=== PATIENT | female | born 1965 | race Two or more races ===

== ENCOUNTER 2019-09-16 19:28 | Inpatient (IN) | payer MEDICARE, OTHER ==
[2019-09-16 20:25] VITALS: BP 93/58
[2019-09-16] MEDS ORDERED: Benztropine 1 mg/mL 2 mL Vial IM ONE (20:37)
[2019-09-16] MEDS ORDERED: Magnesium Hydroxide (MOM) 30 mL UDC PO PRN (20:38)
[2019-09-17] MEDS: Benztropine 1 MG TAB PO SCH ×2 (11:18→16:38)
--- NOTE | 2019-09-17 14:55 | History & Physical ---
ADMIT DATE: 09/17/2019 HISTORY OF PRESENT ILLNESS: We have a 54-year-old female with schizophrenia, diabetes, hypertension, who was admitted for agitation and acting out. The patient's symptoms were not controlled and was transferred here. PAST MEDICAL HISTORY: 1. Schizophrenia. 2. Diabetes. 3. Hypertension. PAST SURGICAL HISTORY: None. MEDICATIONS: List reviewed. ALLERGIES: None. PHYSICAL EXAMINATION: VITAL SIGNS: Temperature is 97.8, pulse 108, respirations 20, blood pressure is 108/48. HEENT: Normocephalic, atraumatic head exam. NECK: Supple. CARDIOVASCULAR: Regular rate and rhythm. LUNGS: Decreased breath sounds. ABDOMEN: Soft, nontender. EXTREMITIES: No edema, cyanosis or clubbing. ASSESSMENT AND PLAN: 1. Agitation. 2. Schizophrenia. 3. Diabetes. 4. Hypertension. The patient will continue with her diabetic meds. We will check her sliding scale insulin and check hemoglobin A1c and lipid panel. [facility]# [id number]
--- NOTE | 2019-09-17 15:12 | Psychiatric Evaluation ---
DATE OF SERVICE: 09/17/2019 PSYCHIATRIC PROGRESS NOTE IDENTIFYING DATA: The patient is a 54-year-old woman living with her family. Information obtained by directly interviewing the patient as well as reviewing the admission papers and they are reliable. JUSTIFICATION OF HOSPITALIZATION: The patient is admitted on 5150 as a danger to self, danger to others and being gravely disabled. HISTORY OF PRESENT ILLNESS: This is the first psychiatric hospitalization to [facility] for this patient who is reported to have been agitated, screaming and yelling, not eating and has been reluctant to take the medication. The patient has been pacing most of the time, the family could not contain her. The patient has been brought to [facility] from where she has been admitted here on a 5150. The patient is reported to be conserved. We are trying to get the information from the family. At the time of the hospitalization, the patient has been on Invega and Depakote. The patient is reported to be noncompliant with the medication. Sleep and appetite prior to the hospitalization are reported to be poor. From the time that the patient came in, she has been screaming, yelling and has been out of control and has to be given couple doses of medications to calm her down. The patient needs almost one-to-one observation. PAST PSYCHIATRIC HISTORY: Details are not known. MEDICAL HISTORY: Physical examination is requested by Dr. Trinidad and is noted to be significant for diabetes, hypercholesterolemia, and hypertension. SUBSTANCE ABUSE HISTORY: None. PHYSICAL OR SEXUAL ABUSE HISTORY: None. LEGAL PROBLEMS: None at this time. SOCIAL HISTORY: The patient is living with her family in [place]. MENTAL STATUS EXAMINATION: The patient is a 54-year-old woman looking her stated age, superficially cooperative. Eye contact is poor. Mood is noted to be irritable. Affect is constricted. The patient seems to be of below average intelligence. The patient needs to be redirected. The patient's speech is noted to be very minimal. The patient is not able to verbalize her concerns. The patient has no insight and impulse control is noted to be extremely poor. The patient's behavior is danger to self and others at this time. Attention span and concentration are noted to be poor. DIAGNOSES: AXIS I: Psychotic disorder, not otherwise specified. AXIS II: Mental retardation. AXIS III: As per Dr. Jandial. IMMEDIATE TREATMENT PLAN: The patient is going to be continued with Risperdal and Depakote. ESTIMATED LENGTH OF STAY: 5-7 days. DISCHARGE CRITERIA: When she no longer a threat to self or others and be able to cope up with the stress. JOB# [id number]
[2019-09-18] MEDS: Benztropine 1 MG TAB PO SCH ×2 (08:00→17:10)
[2019-09-18] MEDS: TRAZODONE HCL PO SCH (09:41)
--- NOTE | 2019-09-18 11:02 | Progress Notes ---
DATE: 09/18/2019 SUBJECTIVE: Staff was spoken to. The patient is interviewed. The patient is out of control, not able to contract for safety. She is screaming and yelling all the time. Insight and judgment are noted to be very much impaired. Impulse control is noted to be extremely poor. The patient has been refusing to comply with the medication. The patient has been placed on 0.5 mg of clonidine b.i.d., but the patient's diastolic is low, and hence, I am going to go with 1 mg of Ativan now to help the patient. ASSESSMENT: The patient is grossly psychotic and impulsive. PLAN: To continue the patient with the above medication such as Risperdal and Depakote and encourage the patient to comply with the treatment. JOB# [id number]
[2019-09-18] MEDS ORDERED: GLUCAGON HCl 1 MG KIT IM PRN (14:30)
--- NOTE | 2019-09-18 14:34 | Internal Medicine Prog Note ---
Internal Medicine Subjective - Subjective Service Date: 09/18/19 Patient seen and examined:: without staff Patient is:: awake, verbal Per staff patient has:: no adverse event, no episodes of fall Internal Medicine Objective - Physical Exam Vitals and I&O: Vital Signs Temp 97.3 F 09/17/19 20:21 Pulse 134 09/18/19 13:34 Resp 19 09/18/19 08:00 BP 101/66 09/17/19 20:21 Pulse Ox 100 09/17/19 20:21 Intake & Output 09/17/19 09/18/19 09/18/19 18:59 06:59 18:59 Intake Total 1150 240 Balance 1150 240 Intake: Oral 1150 240 Other: # Voids 1 2 Active Medications: Current Medications Acetaminophen (Tylenol) 650 mg PO Q4H PRN PRN Reason: Pain (Mild 1-3) Stop: 11/15/19 20:37 Benztropine Mesylate (Cogentin) 1 mg PO BID [facility] Stop: 11/16/19 08:59 Last Admin: 09/18/19 08:00 Dose: 1 mg Dextrose (Glutose 40%) 18.75 gm PO PRN PRN PRN Reason: Blood Glucose less than 70 Stop: 11/17/19 14:29 Glucagon (Glucagen) 1 mg IM PRN PRN PRN Reason: Blood Glucose less than 70 Stop: 11/17/19 14:29 Insulin Human Lispro (Humalog Insulin Sliding Scale) 0 units SUBQ ACHS [facility]; Protocol Stop: 11/17/19 16:29 Lorazepam (Ativan) 1 mg PO Q6HR PRN; Protocol PRN Reason: Agitation Stop: 11/17/19 08:30 Magnesium Hydroxide (Milk Of Magnesia) 30 ml PO HS PRN PRN Reason: Constipation Miscellaneous (Trazodone Hcl [Trazodone Hcl]) 1 tab PO QAM [facility] Stop: 11/17/19 08:59 Miscellaneous (Metformin Hcl [Metformin Hcl]) 1 tab PO BID [facility] Stop: 11/17/19 16:59 Risperidone (Risperdal) 2 mg PO BID [facility]; Protocol Stop: 11/16/19 09:59 Last Admin: 09/18/19 08:00 Dose: 2 mg Trazodone HCl (Desyrel) 100 mg PO HS NISA Stop: 11/17/19 20:59 Valproate Sodium (Depakene) 500 mg PO BID [facility]; Protocol Stop: 11/16/19 09:59 Last Admin: 09/18/19 08:00 Dose: 500 mg Zolpidem Tartrate (Ambien) 5 mg PO HS PRN PRN Reason: Insomnia Stop: 11/15/19 20:37 HEENT: NC/AT Neck: Supple Lungs: CTAB Cardiovascular: RRR, Normal S1, Normal S2 Abdomen: soft Extremities: clear Neurological: no change Internal Medicine Assmt/Plan - Assessment Assessment: 1. DM/HTN 2. Agitation 3. Schizophrenia - Plan Plan: resume metformin 1000mg po bid accu check q ac/hs claribel duval
[2019-09-18] MEDS: INSULIN LISPRO SLIDING SCALE 100 UNITS/ML UNIT SUBQ SCH ×2 (16:16→21:28)
[2019-09-19] MEDS: INSULIN LISPRO SLIDING SCALE 100 UNITS/ML UNIT SUBQ SCH ×4 (06:42→21:37)
[2019-09-19] MEDS: Benztropine 1 MG TAB PO SCH ×2 (08:39→16:00)
[2019-09-19] MEDS: TRAZODONE HCL PO SCH (08:42)
--- NOTE | 2019-09-19 12:22 | Progress Notes ---
DATE: 09/19/2019 SUBJECTIVE: Staff was spoken to. The patient is interviewed. Mood is noted to be less irritable. The patient needs to be closely monitored and redirected. Insight and judgment are noted to be still impaired. Impulse control seems to be very limited. The patient's verbalizations are also noted to be very limited. Coping skills are noted to be poor at this time. The patient is basically managed with 1:1 observation. No side effects to the medications are noted at this time. ASSESSMENT: The patient is still impulsive and psychotic. PLAN: To continue the patient with the current medications and encouraged the patient to verbalize the concerns rather than to act out. JOB# [id number]
--- NOTE | 2019-09-19 16:00 | Internal Medicine Prog Note ---
Internal Medicine Subjective - Subjective Service Date: 09/19/19 Patient is:: awake, verbal Per staff patient has:: no adverse event, no episodes of fall Internal Medicine Objective - Results Recent Labs: Laboratory Last Values POC Glucose 96 MG/DL (70 - 105) 09/19/19 06:07 - Physical Exam Vitals and I&O: Vital Signs Temp 96.9 F 09/19/19 13:21 Pulse 105 09/19/19 13:21 Resp 20 09/19/19 13:21 BP 116/79 09/19/19 13:21 Pulse Ox 99 09/19/19 13:21 Intake & Output 09/18/19 09/19/19 09/19/19 18:59 06:59 18:59 Intake Total 1100 240 Balance 1100 240 Intake: Oral 1100 240 Other: # Voids 3 2 # Bowel Movements 0 0 Active Medications: Current Medications Acetaminophen (Tylenol) 650 mg PO Q4H PRN PRN Reason: Pain (Mild 1-3) Stop: 11/15/19 20:37 Benztropine Mesylate (Cogentin) 1 mg PO BID [facility] Stop: 11/16/19 08:59 Last Admin: 09/19/19 08:39 Dose: 1 mg Dextrose (Glutose 40%) 18.75 gm PO PRN PRN PRN Reason: BS Below 70 if tolerate po Stop: 11/17/19 14:29 Glucagon (Glucagen) 1 mg IM PRN PRN PRN Reason: BS Below 70 if not tolerate po Stop: 11/17/19 14:29 Insulin Human Lispro (Humalog Insulin Sliding Scale) 0 units SUBQ ACHS [facility]; Protocol Stop: 11/17/19 16:29 Last Admin: 09/19/19 11:40 Dose: Not Given Lorazepam (Ativan) 1 mg PO Q6HR PRN; Protocol PRN Reason: Agitation Stop: 11/17/19 08:30 Last Admin: 09/19/19 13:35 Dose: 1 mg Magnesium Hydroxide (Milk Of Magnesia) 30 ml PO HS PRN PRN Reason: Constipation Metformin HCl (Glucophage) 500 mg PO BID [facility] Stop: 11/17/19 16:59 Last Admin: 09/19/19 08:39 Dose: 500 mg Risperidone (Risperdal) 2 mg PO BID [facility]; Protocol Stop: 11/16/19 09:59 Last Admin: 09/19/19 08:39 Dose: 2 mg Trazodone HCl (Desyrel) 100 mg PO HS N[facility] Stop: 11/17/19 20:59 Last Admin: 09/18/19 21:29 Dose: 100 mg Valproate Sodium (Depakene) 500 mg PO BID [facility]; Protocol Stop: 11/16/19 09:59 Last Admin: 09/19/19 08:38 Dose: 500 mg Zolpidem Tartrate (Ambien) 5 mg PO HS PRN PRN Reason: Insomnia Stop: 11/15/19 20:37 Last Admin: 09/19/19 01:41 Dose: 5 mg HEENT: NC/AT Neck: Supple Lungs: CTAB Cardiovascular: RRR, Normal S1, Normal S2 Abdomen: soft Extremities: clear Neurological: no change Internal Medicine Assmt/Plan - Assessment Assessment: 1. DM/HTN 2. Agitation 3. Schizophrenia - Plan Plan: continue metformin 1000mg po bid accu check q ac/hs d.w r.n. Nutritional Asmnt/Malnutr-PDOC - Dietary Evaluation Malnutrition Findings (Please click <Entered> for more info): Nutritional Asmnt/Malnutrition Start: 09/19/19 12: 50 Text: Status: Complete Freq: Protocol: Document 09/19/19 12:55 VERO (Rec: 09/19/19 13:00 VERO [id number]) Nutritional Asmnt/Malnutrition Patient General Information Diagnosis Psychosis Pertinent Medical Hx/Surgical Hx Schizophrenia, Diabetes, HTN Subjective Information Pt is a 54-year-old female admitted on 09/15 d/t agitation and acting out. Pt is eating an estimated 75% x2 days of meals Per Meal/Nutrition Activity Record. Dietary is currently providing an estimated 1500 kcals and 79gm Pro, per Pt PO intake this is providing an estimated 1125 kcals and 59gm Pro to meet 75% kcal and 90% Pro needs- adequate. Pt unable to hold conversation, unable to comprehend questions. Anthropometrics HT: 411 WT: 138 LB (62.72 kg) BMI: 27.86 (Overweight) GI/ Skin Integrity GI: WNL, Soft, Flat BM: Not Noted I/O: 1340/Not Noted Skin: WNL, Intact Don: 20 Diet Order: CCHO, Chopped Estimated Energy Needs: ( Geriatric, CBW) 3417-5362 kcals (25-30 kcals/ kg) 65-75g Pro (1.0-1.2 g/kg) 8263-6213 ml (25-30 ml/kg) Patient / S.O Can't verbalize diet edu Pertinent Medications Glutose 40%, Glucagen, ISN-SS, MOM (PRN), Glucophage Pertinent Labs Glucose 106, Urine Ketones 1+ Nutritional Hx/Data Height 1.5 m Height (Calculated Centimeters) 149.9 Current Weight (lbs) 62.596 kg Weight (Calculated Kilograms) 62.6 Weight (Calculated Grams) 55396.7 [place] Body Weight 98 LB (44.5 kg) % [place] Body Weight 71 Body Mass Index (BMI) 27.8 Weight Status Overweight GI Symptoms GI Symptoms None Last BM Not Noted Skin Integrity/Comment: Skin: WNL, Intact Don: 20 Current %PO Good (75-100%) Estimated Nutritional Goals BEE in Kcals: Using Current wt Calories/Kcals/Kg 25-30 Kcals Calculated 6032-4565 Protein: Using Current wt Protein g/k.0-1.2 Protein Calculated 65-75 Fluid: ml 9670-0785 ml (25-30 ml/kg) Nutritional Problem 1. Problem Problem Altered nutrition related lab values Etiology related to endocrine dysfunction Signs/Symptoms: as evidenced by labs (Glucose 106) and Hx DM. Malnutrition Related to Morbid Obesity Malnutrition related to morbid obesity No Intervention/Recommendation Comments 1.Continue CCHO, chopped diet as tolerated. 2.Continue antihyperglycemic medications for glucose control per MD order. Expected Outcomes/Goals Expected Outcomes/Goals 1.PO intake to continue to meet 75% of estimated nutritional needs. 2.Monitor PO intake, wt, nutrition related labs, and skin integrity. 3.F/U as low risk in 7-10 days , 09/25-09/28.
[2019-09-20] MEDS: INSULIN LISPRO SLIDING SCALE 100 UNITS/ML UNIT SUBQ SCH ×4 (06:49→21:32)
[2019-09-20] MEDS: Benztropine 1 MG TAB PO SCH ×2 (09:26→17:20)
--- NOTE | 2019-09-20 11:50 | Progress Notes ---
DATE: 09/20/2019 SUBJECTIVE: Staff was spoken to. The patient is interviewed. Mood is noted to be irritable. Affect is constricted. Insight and judgment are noted to be still impaired. Impulse control is noted to be poor. Coping skills are noted to be poor. The patient has been having difficult time to cope with the stress. The patient is kept on 1:1 observation. The patient has no insight into her illness. The patient is very intrusive and impulsive and screaming and yelling all the time. Basically, the patient is on 1:1 observation round the clock. ASSESSMENT: The patient is still impulsive. PLAN: To continue the patient with the current medications. I encouraged the patient to follow the directions and showcase maker have been requested to look for placement for this patient. JOB# [id number]
--- NOTE | 2019-09-20 13:51 | Internal Medicine Prog Note ---
Internal Medicine Subjective - Subjective Service Date: 09/20/19 Patient is:: awake, verbal Per staff patient has:: no adverse event, no episodes of fall Internal Medicine Objective - Results Recent Labs: Laboratory Last Values POC Glucose 90 MG/DL (70 - 105) 09/20/19 06:35 - Physical Exam Vitals and I&O: Vital Signs Temp 96.9 F 09/19/19 13:21 Pulse 86 09/20/19 10:27 Resp 20 09/19/19 13:21 BP 95/64 09/20/19 10:27 Pulse Ox 99 09/19/19 13:21 Intake & Output 09/19/19 09/20/19 09/20/19 18:59 06:59 18:59 Intake Total 120 Balance 120 Intake: Oral 120 Other: # Voids 1 # Bowel Movements 0 Active Medications: Current Medications Acetaminophen (Tylenol) 650 mg PO Q4H PRN PRN Reason: Pain (Mild 1-3) Stop: 11/15/19 20:37 Last Admin: 09/19/19 16:00 Dose: 650 mg Benztropine Mesylate (Cogentin) 1 mg PO BID [facility] Stop: 11/16/19 08:59 Last Admin: 09/20/19 09:26 Dose: 1 mg Dextrose (Glutose 40%) 18.75 gm PO PRN PRN PRN Reason: BS Below 70 if tolerate po Stop: 11/17/19 14:29 Glucagon (Glucagen) 1 mg IM PRN PRN PRN Reason: BS Below 70 if not tolerate po Stop: 11/17/19 14:29 Insulin Human Lispro (Humalog Insulin Sliding Scale) 0 units SUBQ ACHS [facility]; Protocol Stop: 11/17/19 16:29 Last Admin: 09/20/19 12:15 Dose: Not Given Lorazepam (Ativan) 1 mg PO Q6HR PRN; Protocol PRN Reason: Agitation Stop: 11/17/19 08:30 Last Admin: 09/20/19 07:49 Dose: 1 mg Magnesium Hydroxide (Milk Of Magnesia) 30 ml PO HS PRN PRN Reason: Constipation Metformin HCl (Glucophage) 500 mg PO BID [facility] Stop: 11/17/19 16:59 Last Admin: 09/20/19 09:27 Dose: 500 mg Risperidone (Risperdal) 2 mg PO BID [facility]; Protocol Stop: 11/16/19 09:59 Last Admin: 09/20/19 09:27 Dose: 2 mg Trazodone HCl (Desyrel) 100 mg PO HS NISA Stop: 11/17/19 20:59 Last Admin: 09/19/19 21:38 Dose: 100 mg Valproate Sodium (Depakene) 500 mg PO BID [facility]; Protocol Stop: 11/16/19 09:59 Last Admin: 09/20/19 09:26 Dose: 500 mg Zolpidem Tartrate (Ambien) 5 mg PO HS PRN PRN Reason: Insomnia Stop: 11/15/19 20:37 Last Admin: 09/20/19 00:52 Dose: 5 mg HEENT: NC/AT Neck: Supple Lungs: CTAB Cardiovascular: RRR, Normal S1, Normal S2 Abdomen: soft Extremities: clear Neurological: no change Internal Medicine Assmt/Plan - Assessment Assessment: 1. DM/HTN 2. Agitation 3. Schizophrenia - Plan Plan: continue metformin 1000mg po bid accu check q ac/hs d.w r.n. Nutritional Asmnt/Malnutr-PDOC - Dietary Evaluation Malnutrition Findings (Please click <Entered> for more info): Nutritional Asmnt/Malnutrition Start: 09/19/19 12: 50 Text: Status: Complete Freq: Protocol: Document 09/19/19 12:55 VERO (Rec: 09/19/19 13:00 VERO [email or web address] [id number]) Nutritional Asmnt/Malnutrition Patient General Information Diagnosis Psychosis Pertinent Medical Hx/Surgical Hx Schizophrenia, Diabetes, HTN Subjective Information Pt is a 54-year-old female admitted on 09/15 d/t agitation and acting out. Pt is eating an estimated 75% x2 days of meals Per Meal/Nutrition Activity Record. Dietary is currently providing an estimated 1500 kcals and 79gm Pro, per Pt PO intake this is providing an estimated 1125 kcals and 59gm Pro to meet 75% kcal and 90% Pro needs- adequate. Pt unable to hold conversation, unable to comprehend questions. Anthropometrics HT: 411 WT: 138 LB (62.72 kg) BMI: 27.86 (Overweight) GI/ Skin Integrity GI: WNL, Soft, Flat BM: Not Noted I/O: 1340/Not Noted Skin: WNL, Intact Don: 20 Diet Order: CCHO, Chopped Estimated Energy Needs: ( Geriatric, CBW) 7610-1683 kcals (25-30 kcals/ kg) 65-75g Pro (1.0-1.2 g/kg) 7086-6566 ml (25-30 ml/kg) Patient / S.O Can't verbalize diet edu Pertinent Medications Glutose 40%, Glucagen, ISN-SS, MOM (PRN), Glucophage Pertinent Labs Glucose 106, Urine Ketones 1+ Nutritional Hx/Data Height 1.5 m Height (Calculated Centimeters) 149.9 Current Weight (lbs) 62.596 kg Weight (Calculated Kilograms) 62.6 Weight (Calculated Grams) 40042.7 [place] Body Weight 98 LB (44.5 kg) % [place] Body Weight 71 Body Mass Index (BMI) 27.8 Weight Status Overweight GI Symptoms GI Symptoms None Last BM Not Noted Skin Integrity/Comment: Skin: WNL, Intact Don: 20 Current %PO Good (75-100%) Estimated Nutritional Goals BEE in Kcals: Using Current wt Calories/Kcals/Kg 25-30 Kcals Calculated 5520-7901 Protein: Using Current wt Protein g/k.0-1.2 Protein Calculated 65-75 Fluid: ml 3714-7484 ml (25-30 ml/kg) Nutritional Problem 1. Problem Problem Altered nutrition related lab values Etiology related to endocrine dysfunction Signs/Symptoms: as evidenced by labs (Glucose 106) and Hx DM. Malnutrition Related to Morbid Obesity Malnutrition related to morbid obesity No Intervention/Recommendation Comments 1.Continue CCHO, chopped diet as tolerated. 2.Continue antihyperglycemic medications for glucose control per MD order. Expected Outcomes/Goals Expected Outcomes/Goals 1.PO intake to continue to meet 75% of estimated nutritional needs. 2.Monitor PO intake, wt, nutrition related labs, and skin integrity. 3.F/U as low risk in 7-10 days , 09/25-09/28.
[2019-09-21] MEDS: INSULIN LISPRO SLIDING SCALE 100 UNITS/ML UNIT SUBQ SCH ×4 (06:55→21:51)
[2019-09-21] MEDS: Benztropine 1 MG TAB PO SCH ×2 (08:03→16:40)
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
[2019-09-22] MEDS: INSULIN LISPRO SLIDING SCALE 100 UNITS/ML UNIT SUBQ SCH ×4 (06:36→20:58)
[2019-09-22] MEDS: Benztropine 1 MG TAB PO SCH ×2 (09:14→16:55)
--- NOTE | 2019-09-22 09:51 | Progress Notes ---
DATE: 09/22/2019 SUBJECTIVE: Staff was spoken to. The patient is interviewed. Mood is noted to be irritable. Affect is constricted. The patient continues to be frustrated easily irritable. Coping skills are noted to be extremely poor. The patient has been pacing most of the time on the unit and staff have to keep an eye on her. The patient is very intrusive and impulsive. The patient verbalizations are minimal. ASSESSMENT: The patient is still a danger to self and others. PLAN: To continue the patient with the current medications and await for placement. JOB# [id number]
[2019-09-23] MEDS: INSULIN LISPRO SLIDING SCALE 100 UNITS/ML UNIT SUBQ SCH ×4 (06:32→21:30)
[2019-09-23] MEDS: Benztropine 1 MG TAB PO SCH ×2 (08:58→16:42)
--- NOTE | 2019-09-23 14:07 | Progress Notes ---
DATE: 09/23/2019 PSYCHIATRIC PROGRESS NOTE SUBJECTIVE: Staff was spoken to. The patient is interviewed. Mood is noted to be still irritable. Affect is constricted. The patient needs to be kept on 1:1. The patient is very intrusive and is trying to get into other people's rooms. The patient has no insight into her illness. Staff are reporting that the spring encaser is working with the [facility] to look for placement for this patient and possibly it can happen tomorrow. JOB# [id number]
[2019-09-24] MEDS: INSULIN LISPRO SLIDING SCALE 100 UNITS/ML UNIT SUBQ SCH (06:37)
[2019-09-24] MEDS: Benztropine 1 MG TAB PO SCH (08:08)
--- NOTE | 2019-09-24 16:48 | Progress Notes ---
DATE: 09/24/2019 SUBJECTIVE: Staff was spoken to. The patient is interviewed. Mood is noted to be less irritable. Affect is appropriate. The patient is not suicidal or homicidal. Insight and judgment are noted to be improving. Impulse control seems to be her concern. The patient is kept on 1:1 observation because she is getting into other peoples rooms and the patient has not been screaming and yelling today. No side effects to the medications are noted. ASSESSMENT: The patient is stabilizing. PLAN: To continue the patient with the current medications and encouraged the patient to verbalize the concerns rather than to act out. JOB# [id number]
== END 2019-09-24 10:50 | disposition home or self-care (01) | DRG 885 ==
LOC: GERO 19:28
PROVIDERS: ADMIT Psychiatry & Neurology Psychiatry; ATTEND Psychiatry & Neurology Psychiatry
DX: F20.9 Schizophrenia, unspecified (principal); E11.9 Type 2 diabetes mellitus without complications; I10 Essential (primary) hypertension; E78.00 Pure hypercholesterolemia, unspecified; Z79.899 Other long term (current) drug therapy; Z79.84 Long term (current) use of oral hypoglycemic drugs
CPT/HCPCS: 82948-90; A4216; J0515; J2060; Z7610